=== PATIENT | male | born 1970 | race Caucasian/White ===

== ENCOUNTER → 2022-07-17 | Day surgery (SDC) | payer BC ==
[~2022-07-17] MED LIST: Flumazenil 0.1 MG/ML 10 ML MDV ONE; Ketamine 200 MG/20 ML MDV ONE; Midazolam 1 MG/ML 2 ML SDV ONE; Propofol 200 MG/20 ML SDV ONE; fentaNYL 50 MCG/ML SDV ONE
[2022-07-17] MEDS: Lactated Ringers 1,000 ML IV SCH (07:39)
[2022-07-17 10:43] VITALS: BP 107/69; PULSE 74
== END ==
LOC: CC.SDS 07:25
PROVIDERS: ATTEND Family Medicine
DX: Z12.11 Encounter for screening for malignant neoplasm of colon (principal); D12.3 Benign neoplasm of transverse colon; I10 Essential (primary) hypertension; E66.01 Morbid (severe) obesity due to excess calories; G47.33 Obstructive sleep apnea (adult) (pediatric); K21.9 Gastro-esophageal reflux disease without esophagitis; Z68.43 Body mass index [BMI] 50.0-59.9, adult; Z98.890 Other specified postprocedural states; Z79.899 Other long term (current) drug therapy
CPT/HCPCS: 00812; J2250; J2704; J3010; J7120

== ENCOUNTER 2022-12-29 14:56 | Emergency (ER) | payer BC ==
[2022-12-29] MEDS ORDERED: Aspirin 81 MG Tab.Chew PO STA (15:05)
[2022-12-29 15:44] LABS: CORONAVIRUS COVID-19 RAPID NEGATIVE (NEGATIVE)
[2022-12-29 16:38] VITALS: BP 132/65; PULSE 72
== END 2022-12-29 16:05 | disposition home or self-care (01) ==
LOC: SUPCPDRO 14:56 → CC.ED 14:56
DX: R07.89 Other chest pain (principal); Z20.822 Contact with and (suspected) exposure to COVID-19
CPT/HCPCS: 99285; A9270-GY; U0002